=== PATIENT | female | born 1970 | race Caucasian/White ===

== ENCOUNTER 2018-06-23 05:26 | Emergency (ER) | payer OTHER ==
[~2018-06-23] VITALS: Ht 160 cm; Wt 136.1 kg
[~2018-06-23 05:26] MED LIST: BENZONATATE100 MG PO; IBUPROFEN 800800 M1 PO; NAPROSYN250 MG PO; PROAIR HFA8.5 GM IH; RANITIDINE 150150 M1 PO; WELLBUTRIN 100100 MG PO; XANAX 0.25 MG0.25 MG PO
[2018-06-23 06:42] VITALS: BP 151/83
== END 2018-06-23 06:44 | disposition home or self-care (01) ==
LOC: M.ERS 05:26
DX: S69.91XA Unspecified injury of right wrist, hand and finger(s), initial encounter (principal); K21.9 Gastro-esophageal reflux disease without esophagitis; F32.9 Major depressive disorder, single episode, unspecified; F17.210 Nicotine dependence, cigarettes, uncomplicated; Z90.710 Acquired absence of both cervix and uterus; Z88.5 Allergy status to narcotic agent; W19.XXXA Unspecified fall, initial encounter; Y93.89 Activity, other specified; Y92.89 Other specified places as the place of occurrence of the external cause; Y99.8 Other external cause status